=== PATIENT | male | born 1965 | race Caucasian/White ===

== ENCOUNTER 2017-02-20 01:47 | Emergency (ER) | payer SELFPAY ==
[~2017-02-20] VITALS: Ht 177.8 cm; Wt 77.0 kg
[2017-02-20 01:50] VITALS: BP 136/90; PULSE 96; RESP 18; TEMP 98.2; O2SAT 95
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
[2017-02-20] MEDS ORDERED: LIDOCAINE 1%/EPINEPHrine 1:100,000 SOLN 20 ML VIAL INFIL ONE (02:00)
[2017-02-20] MEDS ORDERED: TETANUS/DIPHTHERIA TOXOID ADULT 0.5 ML VIAL IM ONE (02:00)
--- NOTE | 2017-02-20 02:24 | RADRPT ---
EXAM DATE/TIME: 02/20/2017 02:16 [facility] COMPARISON: No previous studies available for comparison. INDICATIONS : Fall, lower back pain. MEDICAL HISTORY : None. SURGICAL HISTORY : None. ENCOUNTER: Initial ACUITY: 1 day PAIN SCORE: 0/10 LOCATION: Bilateral l-spine FINDINGS: Two view examination was performed. There are five non-rib bearing vertebral bodies. The vertebral bodies are in normal alignment without evidence of subluxation or scoliosis. There is focal primary degenerative changes with disc space narrowing at L5-S1. Bony mineralization is normal. No fracture is identified. CONCLUSION: 1. Focal primary degenerative changes with disc space narrowing at L5-S1. 2. Otherwise, unremarkable exam for patient's age. Naveed Sanchez MD on February 20, 2017 at 2:22 Board Certified Radiologist. This report was verified electronically.
--- NOTE | 2017-02-20 02:26 | RADRPT ---
EXAM DATE/TIME: 02/20/2017 02:20 [facility] COMPARISON: No previous studies available for comparison. INDICATIONS : Fall elbow pain. Laceration on posterior elbow. MEDICAL HISTORY : None. SURGICAL HISTORY : None. ENCOUNTER: Initial ACUITY: 1 day PAIN SCORE: 0/10 LOCATION: Left elbow FINDINGS: Multiple view examination of the left elbow demonstrates no soft tissue swelling, joint effusion, or fracture. The osseous structures are in normal alignment. Bony mineralization is normal. CONCLUSION: Normal examination for a patient of this age. Naveed Sanchez MD on February 20, 2017 at 2:23 Board Certified Radiologist. This report was verified electronically.
[2017-02-20] MEDS ORDERED: NAPR500 PO (02:44)
[2017-02-20] MEDS ORDERED: CYCL1TAB29 PO (02:44)
[2017-02-20] MEDS ORDERED: IBUPROFEN 800 MG TAB PO ONE (02:45)
[2017-02-20] MEDS ORDERED: ACETAMINOPHEN/HYDROcodone 325 MG/5 MG TAB PO ONE (02:45)
== END 2017-02-20 03:51 | disposition home or self-care (01) ==
LOC: NEPD 01:47
DX: S01.511A Laceration without foreign body of lip, initial encounter (principal); S50.02XA Contusion of left elbow, initial encounter; M54.5 Low back pain; G89.29 Other chronic pain; Z23 Encounter for immunization; Z79.899 Other long term (current) drug therapy; Z72.0 Tobacco use; Y04.2XXA Assault by strike against or bumped into by another person, initial encounter
CPT/HCPCS: 12011; 72100; 73080; 90471; 90714